=== PATIENT | male | born 1985 | race Caucasian/White ===

== ENCOUNTER 2019-03-16 10:05 | Emergency (ER) | payer BC, MEDICAID ==
--- NOTE | 2019-03-16 11:09 | UC ---
Eye Complaint HPI - HPI Summary HPI Summary: 33 yo male presents with RIGHT eyelid irritation. He tells me that 3 days ago he was chopping wood with his friend. The next day noticed some swelling and redness to his right upper eyelid with itching to his eye. He used OTC saline eye drops and improved mildly, but still present this morning. He denies FB in his eye, blurry vision, eye pain, drainage from the eye, fever. He does not wear glasses or contacts - History of Current Complaint Stated Complaint: RT EYE COMPLAINT Time Seen by Provider: 03/16/19 11:09 Hx Obtained From: Patient Onset/Duration: Sudden Onset Severity Initially: Mild Severity Currently: Mild Pain Intensity: 3 Pain Scale Used: 0-10 Numeric PMH/Surg Hx/FS Hx/Imm Hx - Additional Past Medical History Additional PMH: None - Surgical History Surgical History: None - Family History Known Family History: Positive: Non-Contributory - Social History Occupation: Employed Full-time Lives: With Family Alcohol Use: Occasionally Substance Use Type: None Smoking Status (MU): Light Every Day Tobacco Smoker Type: Cigarettes Review of Systems All Other Systems Reviewed And Are Negative: No Constitutional: Positive: Negative Skin: Positive: Negative Eyes: Positive: Other - Upper eyelid irritation Respiratory: Positive: Negative Cardiovascular: Positive: Negative Neurological: Positive: Negative Psychological: Positive: Negative Physical Exam - Summary Physical Exam Summary: GENERAL: NAD. WDWN. No pain distress. SKIN: No rashes, sores, lesions, or open wounds. HEENT: Head: AT/NC Eyes: EOM intact. Conjunctiva clear without inflammation or discharge. RIGHT upper eyelid with mild erythema, irritation, and edema. NTTP. No stye appreciated. No sclera injection Ears: Hearing grossly normal. TMs intact, no bulging, erythema, or edema. Nose: Nasal mucosa pink and moist. NTTP maxillary and frontal sinus. Throat: Posterior oropharynx without exudates, erythema, or tonsillar enlargement. Uvula midline. NECK: Supple. Nontender. No lymphadenopathy. CHEST: CTAB. No accessory muscle use. Breathing comfortably and in no distress. CV: RRR. Pulses intact. Cap refill <2seconds NEURO: Alert. PSYCH: Age appropriate behavior. Triage Information Reviewed: Yes Vital Signs: Vital Signs: Temp Pulse Resp BP Pulse Ox 98.1 F 66 18 116/73 98 03/16/19 11:21 03/16/19 11:21 03/16/19 11:21 03/16/19 11:21 03/16/19 11:21 Vital Signs Reviewed: Yes Eye Complaint Course/Dx - Course Course Of Treatment: Suspect blepharitis - Differential Dx/Diagnosis Provider Diagnosis: Blepharitis of eyelid of right eye Discharge ED - Sign-Out/Discharge Documenting (check all that apply): Patient Departure All imaging exams completed and their final reports reviewed: No Studies - Discharge Plan Condition: Stable Disposition: HOME Prescriptions: Ofloxacin 0.3% (Eye Drop) [Ocuflox OPTH 0.3% (Eye Drop)] 1 drop RIGHT EYE QID 5 Days #1 btl Patient Education Materials: Blepharitis (ED) Referrals: [facility] [Outside] - As Soon As Possible No Primary Care Phys,NOPCP [Primary Care Provider] - Additional Instructions: If you develop a fever, shortness of breath, chest pain, new or worsening symptoms - please call your PCP or go to the ED immediately. - Billing Disposition and Condition Condition: STABLE Disposition: Home
[2019-03-16 11:26] VITALS: BP 116/73
== END 2019-03-16 11:30 | disposition home or self-care (01) ==
LOC: UCCORT 10:05
DX: H01.001 Unspecified blepharitis right upper eyelid (principal)
CPT/HCPCS: 99202; G0463